=== PATIENT | female | born 1980 | race Caucasian/White ===

== ENCOUNTER 2023-04-03 14:53 | Emergency (ER) | payer OTHER, SELFPAY ==
[2023-04-03 14:56] VITALS: BP 115/71
--- NOTE | 2023-04-03 15:56 | ED.GENMED ---
History of Present Illness
<Deanna Michelle PA-C - Last Filed: 04/03/23 18:06>
General
Chief Complaint: Head Injury
Source: patient
Exam Limitations: none
Time Seen by Provider: 04/03/23 15:20
Nursing documentation reviewed up to this point in time: agreed with
Travel History
Have you had any contact with someone who has COVID-19?: No
Do you have any symptoms of coronavirus? Fever > 100 degrees, chills, cough, shortness of breath, sore throat, loss of taste or smell, muscle aches, or headache?: No
History of Present Illness
History of Present Illness:
Patient is a 42-year-old female with history of gastroparesis, hypothyroid, migraines presenting for evaluation following head injury earlier today. She states that she was walking into a parking garage in [place] around 12 PM when the arm came
down striking her in the forehead. She did not fall to the ground or lose consciousness. She has no amnesia surrounding event. Patient does endorse a headache and some nausea that has persisted. She denies any neck pain, visual changes,
confusion, back pain, chest pain, shortness of breath. Her mother is with patient Emergency Department states that she has been acting herself.
Patient has a history of gastroparesis and migraines. She takes 8 mg Zofran every 8 hours as a standing dose. Her nausea seems more persistent today after head injury.
Past History
<Deanna Michelle PA-C - Last Filed: 04/03/23 18:06>
Past History
ED Past Medical History: GERD, Hypothyroidism (Mai's thyroiditis), Psychiatric (Anxiety and panic disorder) and Other (Fibromyalgia, migraines, chronic facial pain, pelvic pain, orthostatic hypotension, anxiety, non-motile colon, chronic
fatigue)
ED Past Surgical History: Appendectomy and Other (Total colectomy 2015, oophorectomy 2015, exploratory lap 2014, endoscopy with Botox 2014, appendectomy 2006, colonoscopy 2013, endoscopy 2006, 2010, 2013)
Social History
Tobacco: Non-smoker
Alcohol: None
Phy Exam
<Deanna Michelle PA-C - Last Filed: 04/03/23 18:06>
Physical Exam
Physical Exam:
General: Well appearing and non-toxic
Vitals: Vital signs stable, afebrile
HEENT: Atraumatic, normocephalic; pupils equal round reactive to light bilaterally, extraocular muscle intact, no tenderness around orbits, no hematoma, protecting airway
Neck: appears supple, no C-spine tenderness, no midline spinal tenderness
CV: Regular rhythm, heart sounds normal, no evidence of cyanosis
Resp: No evidence of respiratory distress, lungs clear, no accessory muscle use
Abd: Non-distended
Extremities: No deformities, no evidence of cyanosis or edema; strength 5 out of 5 in upper and lower extremities
Neuro: alert and oriented to person place time, speech normal, no focal neurologic deficits, no focal motor deficits, cranial nerves II, sensation fully intact, normal [id number]
Psych: Normal affect
Skin: Intact, no rashes or ecchymoses
Course
<Deanna Michelle PA-C - Last Filed: 04/03/23 18:06>
Orders/Labs/Results
Orders:
Orders
04/03/23 15:57
Acetaminophen [Tylenol] 650 mg PO NOW STA
Vital Signs
Initial and Last Documented VS:
Initial Vital Signs
Temp Pulse Resp BP Pulse Ox
98.2 F 74 16 115/71 98
04/03/23 14:56 04/03/23 14:56 04/03/23 14:56 04/03/23 14:56 04/03/23 14:56
Last Documented Vital Signs
Temp Pulse Resp BP Pulse Ox
98.2 F 74 16 115/71 98
04/03/23 14:56 04/03/23 14:56 04/03/23 14:56 04/03/23 14:56 04/03/23 14:56
<Balaji Mooney DO - Last Filed: 04/03/23 16:04>
Orders/Labs/Results
Orders:
Orders
04/03/23 15:57
Acetaminophen [Tylenol] 650 mg PO NOW STA
Vital Signs
Initial and Last Documented VS:
Initial Vital Signs
Temp Pulse Resp BP Pulse Ox
98.2 F 74 16 115/71 98
04/03/23 14:56 04/03/23 14:56 04/03/23 14:56 04/03/23 14:56 04/03/23 14:56
Last Documented Vital Signs
Temp Pulse Resp BP Pulse Ox
98.2 F 74 16 115/71 98
04/03/23 14:56 04/03/23 14:56 04/03/23 14:56 04/03/23 14:56 04/03/23 14:56
<Deanna Michelle PA-C - Last Filed: 04/03/23 18:06>
MDM/Problems Addressed
Differential Diagnosis Includes:
concussion, contusion, etc
MDM/Problems Addressed:
Patient is a 42-year-old female presenting for evaluation of head injury that occurred earlier today around noon. She was struck with arm a parking garage she was walking through. She did not lose consciousness. She is endorsing mild headache and
persistent nausea. She denies any vomiting, confusion, or amnesia. She does take Zofran 8 mg 3 times daily for persistent nausea from gastroparesis. Patient has stable vital signs upon arrival. Physical exam as documented above. She has no
neurologic deficits. There is no evidence of hematoma, bruising to forehead. She has not vomited since arrival to emergency department.
Utilize [place] CT head rule�patient scored 0, head CT unnecessary
Given patient appearance, normal neuroexam, and [place] head CT rule�feel that head CT is not necessary. Suspect likely mild head injury/concussion. Lengthy discussion with patient regarding return precautions, supportive care, primary care
follow-up. Will give Tylenol for headache. Patient stable for discharge. Patient is comfortable this plan. All questions answered.
Chronic conditions affecting care:
Migraines, gastroparesis, anxiety
Acute Exacerbation and/or Progression of Chronic Illness:
Mild head injury
<Deanna Michelle PA-C - Last Filed: 04/03/23 18:06>
*Pulse Oximetry
Patient hypoxic: no
*Real Estate Sales Manager Interpretation
Rate: Real Estate Sales Manager- N/A
*Critical Care Note
Total Time (30-74mins, 75-104mins- exclusive of procedures): Not Applicable
ED Attending Note
<Deanna Michelle PA-C - Last Filed: 04/03/23 18:06>
-
Portions of this chart may have been created with voice recognition software.� Occasional wrong word or��sound alike� substitutions may have occurred due to the inherent limitations of voice recognition software.
<Balaji Mooney, - Last Filed: 04/03/23 16:04>
ED Attending Note
Patient seen and examined by attending physician: Yes
I performed the substantive portion of visit, reviewed & personally made and approve the management plan that is documented in note by myself or MORENO.: Yes
ED Attending Note:
Agree with Maribel's note.
No cephalohematoma. Neuro exam non-focal.
Symptomatic care
Discharge Plan
Departure
Patient Disposition: Home (Routine Discharge)
Date of Disposition: 04/03/23
Time of Disposition: 16:34
Patient with high blood pressure during this ER visit?: No
Condition: Good
Covid-19: Not Applicable
Discharge Problem:
Head injury
Instructions: Concussion, Adult (DC), Minor Head Injury (DC)
Prescriptions:
No Action
terazosin 5 MG capsule
10 mg PO HS
ondansetron HCl [Zofran] 8 MG tablet
8 mg PO TIDPRN PRN (Reason: nausea/vomiting)
clonazepam 1 MG tablet
2 mg PO BID
Patient Comments:
11/13/2019: last filled 09/11/19, 60 tabs for 30 days from [place]
rimabotulinumtoxinB [Myobloc] 10,000 UNIT/2 ML solution
10,000 unit IM Q3M
Patient Comments:
11/13/2019: pt states beginning of october
pantoprazole 40 MG tablet,delayed release (DR/EC)
40 mg PO BID
fluticasone propionate 1 SPRAY spray,suspension
2 spray intranasal DAILY
melatonin 1 MG tablet
2 mg PO HS
hydroxyzine pamoate 100 MG capsule
200 mg PO HS
quetiapine 100 MG tablet
100 mg PO HS
levothyroxine 125 MCG tablet
125 mcg PO DAILY
doxazosin 4 MG tablet
4 mg PO BID
albuterol sulfate 1 PUFF HFA aerosol inhaler
2 puff inhalation R Q4HPRN PRN (Reason: sob)
oxycodone-acetaminophen 5 MG/325 MG tablet
2 tab PO Q4HPRN PRN (Reason: SEVERE PAIN) Qty: 20 0RF
diclofenac potassium 50 MG tablet
50 mg PO BID Qty: 20 0RF
naproxen 500 mg tablet
500 mg PO BID Qty: 20 0RF
methocarbamol 500 mg tablet
500 - 1,000 mg PO HS Qty: 12 0RF
Referrals:
Raman Elizondo MD [Family Provider] - Follow up in 1 week
Stand Alone Forms: Return to Work
Activity Restrictions/Additional Instructions:
- Return to the emergency department with any severe headache, intractable vomiting, changes in vision, severe neck pain, confusion, changes in mental status, worsening in current symptoms, or any other concerns
-You can take tylenol as needed for headache. You should continue to take your zofran prescription as prescribed
-Apply ice to forhead to limit brusing/swelling
-Follow-up with primary care for further evaluation/treatment if symptoms persist
Interventions
Interventions:
*Risk Screen - Suicide Last Done: 04/03/23 17:08
*General Assessment Last Done: 04/03/23 17:08
*Neglect/Abuse Screening Last Done: 04/03/23 17:08
ED- Fall Risk Assessment Last Done: 04/03/23 17:08
*ED COVID-19 Vaccine History Last Done: 04/03/23 14:56
*Nursing Disposition Last Done: 04/03/23 17:08
ED- Neurological Assessment Last Done: 04/03/23 17:08
ED-Skin Assessment Last Done: 04/03/23 17:08
Discharge Date and Time
Discharge Date/Time: 04/03/23 17:08
[2023-04-03] MEDS: TYLENOL 650 MG PO (16:05)
== END 2023-04-03 17:08 | disposition home or self-care (01) ==
LOC: EMR 14:53
PROVIDERS: EMERGENCY PHYSICIAN Emergency Medicine; FAMILY PHYSICIAN Family Medicine
DX: S09.90XA Unspecified injury of head, initial encounter (principal); W22.8XXA Striking against or struck by other objects, initial encounter; K31.84 Gastroparesis; G43.909 Migraine, unspecified, not intractable, without status migrainosus; F41.9 Anxiety disorder, unspecified
CPT/HCPCS: 99282

== ENCOUNTER 2023-09-30 08:13 | Emergency (ER) | payer OTHER, SELFPAY ==
[2023-09-30 08:14] VITALS: BP 105/69
--- NOTE | 2023-09-30 09:37 | ED.GENMED ---
History of Present Illness
General
Chief Complaint: Flank Pain
Source: patient
Exam Limitations: none
Time Seen by Provider: 09/30/23 08:19
Nursing documentation reviewed up to this point in time: agreed with
History of Present Illness
History of Present Illness:
The patient is a pleasant 42-year-old female who comes in with complaints of intermittent right flank pain for several days. Patient reports that intensified last night and is associated with nausea. Patient denies vomiting and fever. She reports
she has had increased frequency of urination lately. She denies a history of kidney stones.
Past History
Past History
ED Past Medical History: GERD, Hypothyroidism (Mai's thyroiditis), Psychiatric (Anxiety and panic disorder) and Other (Fibromyalgia, migraines, chronic facial pain, pelvic pain, orthostatic hypotension, anxiety, non-motile colon, chronic
fatigue)
ED Past Surgical History: Appendectomy and Other (Total colectomy 2015, oophorectomy 2015, exploratory lap 2014, endoscopy with Botox 2014, appendectomy 2005, colonoscopy 2013, endoscopy 2006, 2010, 2013)
Social History
Tobacco: Non-smoker
Alcohol: None
Drug: None
Personal: Other
Living: with family
Employment: Other
Family History
Family History: Other
Review of Systems
Review of Systems
Allergies reviewed?: Yes
All Other Systems: ROS reviewed and negative except as documented in HPI and ROS
Constitutional: Reports no symptoms
EENT: Reports no symptoms
Respiratory: Reports no symptoms
Cardiac: Reports no symptoms
ABD/GI: Reports nausea
: Reports frequency and flank pain
Musculoskeletal: Reports no symptoms
Skin: Reports no symptoms
Neurological: Reports no symptoms
Endocrine: Reports no symptoms
Hematologic/Lymphatic: Reports no symptoms
Psychiatric: Reports no symptoms
Phy Exam
Physical Exam
Physical Exam:
Physical Exam
General: no apparent distress, not acutely ill
Neck: supple. no meningeal signs. normal psoterior pharynx
Heart: s1/s2 regular rate and rhythm, no murmur. equal radial pulses.
Lungs: no acute respiratory distress. clear bilaterally
Abdomen: normal bowel sounds. not tender. no CVAT
Neuro: alert and oriented. no focal neurological deficits
Skin: no rash
Psychiatric: well kept. interactive and cooperative
Extremities: no edema. no calf tenderness. negative homans. good distal pulses
Course
Orders/Labs/Results
Orders:
Orders
09/30/23 08:59
Ketorolac [Toradol] 30 mg IV NOW STA
Morphine Sulfate 4 mg IV NOW STA
09/30/23 09:00
Test Result ONCE
09/30/23 09:01
CT Abd/pel Without Iv Or Oral Urgent
Comment:
Reason For Exam: R flank pain
09/30/23 09:32
Complete Blood Count/With Diff Urgent
Urinalysis Reflex To Culture Urgent
Date Specimen was Collected: 09/30/23
Time Specimen was Collected: 09:03
09/30/23 09:45
Comprehensive Metabolic Panel Urgent
HCG, Serum Qualitative Screen Urgent
Abnormal Lab Results
09/30/23
09:32
RBC 3.99 L 10^6/uL
(4.20-5.40)
Hct 36.5 L %
(37.0-47.0)
MCH 31.6 H pg
(27.0-31.0)
09/30/23 09:32
09/30/23 09:45
Vital Signs
Initial and Last Documented VS:
Initial Vital Signs
Temp Pulse Resp BP Pulse Ox
98.1 F 91 20 105/69 97
09/30/23 08:14 09/30/23 08:14 09/30/23 08:14 09/30/23 08:14 09/30/23 08:14
Last Documented Vital Signs
Temp Pulse Resp BP Pulse Ox
98.1 F 91 20 99/60 94
09/30/23 08:14 09/30/23 08:14 09/30/23 08:14 09/30/23 10:05 09/30/23 10:15
MDM/Problems Addressed
Differential Diagnosis Includes:
Acute pyelonephritis, acute renal colic on right, small bowel obstruction
MDM/Problems Addressed:
Patient presents with acute right flank pain and nausea
Chronic conditions affecting care: Previous abdomnial surgery
Acute Exacerbation and/or Progression of Chronic Illness: Previous abdomnial surgery
*Radiology
Radiology exam reviewed: radiology read reviewed
*Pulse Oximetry
Patient hypoxic: no
*EKG
Interpreted by ED Provider?: NA
*Jewel Grinder Interpretation
Rate: normal
Interpretation: normal
Rhythm: sinus
*Critical Care Note
Total Time (30-74mins, 75-104mins- exclusive of procedures): Not Applicable
Data Reviewed
Review of Other/Old Records Reveals: Discharge Summary (Discharge summary reviewed from 10/2020 patient was admitted for intractable abdominal pain thought to be due to musculoskeletal)
Source: patient
Patient Management
Social determinants of health affecting care: Living situation and Strong social support
Escalation/DeEscalation of care consider admission/obs:
Patient continues to look well and comfortable, without any fever, elevated white blood cell count, or abnormal labs. Urine does not suggest pyelonephritis. Patient is able to eat crackers and drink willy raymon. She will be encouraged to follow-up
with her doctor. CT suggest no acute intra-abdominal or pelvic infection.
ED Attending Note
-
Portions of this chart may have been created with voice recognition software.� Occasional wrong word or��sound alike� substitutions may have occurred due to the inherent limitations of voice recognition software.
Discharge Plan
Departure
Patient Disposition: Home (Routine Discharge)
Date of Disposition: 09/30/23
Time of Disposition: :22
Patient with high blood pressure during this ER visit?: No
Condition: Good
Covid-19: Not Applicable
Discharge Problem:
Acute right flank pain
Instructions: Flank Pain (DC)
Prescriptions:
No Action
terazosin 5 MG capsule
10 mg PO HS
ondansetron HCl [Zofran] 8 MG tablet
8 mg PO TIDPRN PRN (Reason: nausea/vomiting)
clonazepam 1 MG tablet
2 mg PO BID
Patient Comments:
11/13/2019: last filled 09/11/19, 60 tabs for 30 days from [place]
rimabotulinumtoxinB [Myobloc] 10,000 UNIT/2 ML solution
10,000 unit IM Q3M
Patient Comments:
11/13/2019: pt states beginning of october
pantoprazole 40 MG tablet,delayed release (DR/EC)
40 mg PO BID
fluticasone propionate 1 SPRAY spray,suspension
2 spray intranasal DAILY
melatonin 1 MG tablet
2 mg PO HS
hydroxyzine pamoate 100 MG capsule
200 mg PO HS
quetiapine 100 MG tablet
100 mg PO HS
levothyroxine 125 MCG tablet
125 mcg PO DAILY
doxazosin 4 MG tablet
4 mg PO BID
albuterol sulfate 1 PUFF HFA aerosol inhaler
2 puff inhalation R Q4HPRN PRN (Reason: sob)
oxycodone-acetaminophen 5 MG/325 MG tablet
2 tab PO Q4HPRN PRN (Reason: SEVERE PAIN) Qty: 20 0RF
diclofenac potassium 50 MG tablet
50 mg PO BID Qty: 20 0RF
naproxen 500 mg tablet
500 mg PO BID Qty: 20 0RF
methocarbamol 500 mg tablet
500 - 1,000 mg PO HS Qty: 12 0RF
Referrals:
Raman Elizondo MD [Family Provider] -
Activity Restrictions/Additional Instructions:
Return for fever or vomiting.
Interventions
Interventions:
*Risk Screen - Suicide Last Done: 09/30/23 08:14
*General Assessment Last Done: 09/30/23 08:14
*Neglect/Abuse Screening Last Done: 09/30/23 08:14
ED- Fall Risk Assessment Last Done: 09/30/23 09:00
IU-Xgzvoa-Xpzodqsrdv Assessment Last Done: 09/30/23 09:00
ED-Female Genitourinary Assessment Last Done: 09/30/23 09:00
Discharge Date and Time
Print Language: SPANISH
[2023-09-30] MEDS: TORADOL 30 MG IV (09:50)
[2023-09-30] MEDS: MORPHINE SULFATE 4 MG IV (09:51)
[2023-09-30 10:03] LABS: Urine Albumin Negative (Neg - Trace); Urine Bilirubin Negative (Negative); Urine Character Clear (Clear); Urine Color Yellow; Urine Glucose Negative (Negative); Urine Ketone Negative (Negative); Urine Leukocyte Negative (Negative); Urine Nitrite Negative (Negative); Urine Occult Blood Negative (Negative); Urine Urobilinogen Negative (Neg - 1+); Urine pH 6.5 (5.0-9.0)
[2023-09-30 10:05] VITALS: BP 99/60
[2023-09-30 10:25] LABS: % Basophils 0.9 % (0-2); % Eosinophils 1.1 % (0-6); % Immature Granulocytes 0.2 % (0-0.5); % Lymphocytes 38.2 % (20.5-51.1); % Monocytes 6.7 % (1.7-9.3); % Neutrophils 52.9 % (42.2-75.2); Absolute Basophils 0.1 10^3/uL (0-0.2); Absolute Eosinophils 0.1 10^3/uL (0-0.7); Absolute Lymphocytes 2.1 10^3/uL (1.2-3.4); Absolute Monocytes 0.4 10^3/uL (0.1-0.6); Absolute Neutrophils 2.9 10^3/uL (1.4-6.5); Hematocrit 36.5 % (37.0-47.0); Hemoglobin 12.6 g/dL (12.0-16.0); Mean Corp Hgb Conc. 34.5 g/dL (33.0-37.0); Mean Corpuscular Hgb 31.6 pg (27.0-31.0); Mean Corpuscular Volume 91.5 fL (81.0-99.0); Mean Platelet Volume 9.5 fL (7.4-10.4); Nucleated Red Blood Cells % 0 %; Platelet Count 280 10^3/uL (130-400); Red Blood Cell Count 3.99 10^6/uL (4.20-5.40); Red Cell Dist. Width 11.9 % (11.5-14.5); White Blood Cell Count 5.4 10^3/uL (4.8-10.8)
[2023-09-30 10:38] LABS: HCG, Serum Qualitative Screen Negative
[2023-09-30 10:40] LABS: ALT (SGPT) 16 U/L (0-35); AST (SGOT) 24 U/L (14-36); Albumin 4.5 g/dl (3.5-5.0); Alkaline Phosphatase 60 U/L (38-126); Blood Urea Nitrogen 7 mg/dl (7-17); Calcium 9.8 mg/dl (8.4-10.2); Carbon Dioxide 26 mmol/L (22-30); Chloride 104 mmol/L (98-107); Glucose 83 mg/dl (70-99); Potassium 4.2 mmol/L (3.5-5.1); Sodium 135 mmol/L (135-145); Total Bilirubin 0.4 mg/dl (0.2-1.3); eGFR > 60.00
== END 2023-09-30 11:15 | disposition home or self-care (01) ==
LOC: EMR 08:13
PROVIDERS: EMERGENCY PHYSICIAN Emergency Medicine; FAMILY PHYSICIAN Family Medicine
DX: R10.9 Unspecified abdominal pain (principal); R11.0 Nausea; R35.0 Frequency of micturition; K21.9 Gastro-esophageal reflux disease without esophagitis; F41.9 Anxiety disorder, unspecified; M79.7 Fibromyalgia; E06.3 Autoimmune thyroiditis; F41.0 Panic disorder [episodic paroxysmal anxiety]; K58.9 Irritable bowel syndrome, unspecified; G43.909 Migraine, unspecified, not intractable, without status migrainosus; Z88.1 Allergy status to other antibiotic agents; Z88.2 Allergy status to sulfonamides; Z91.048 Other nonmedicinal substance allergy status
CPT/HCPCS: 99284; 96374; 96375; 74176; 80053; 81003; 84703; 85025

== ENCOUNTER 2023-11-26 10:39 | Emergency (ER) | payer OTHER, SELFPAY ==
[2023-11-26 10:41] VITALS: BP 109/68
--- NOTE | 2023-11-26 11:47 | ED.GENMED ---
History of Present Illness
General
Chief Complaint: Musculo-Skeletal Complaint
Time Seen by Provider: 11/26/23 11:05
History of Present Illness
History of Present Illness:
43-year-old female with history of chronic back pain presenting to the emergency department for lower back pain. Patient reports that she woke up this morning with pain in her lower back with shooting pain down both of her legs. Denies any
inciting injury or trauma, however notes that she saw her chiropractor 3 days ago for her other back issues. Denies numbness or tingling to her extremities. Denies issues with ambulation. She tried a Percocet at home for pain, without significant
relief. Denies fever. Denies chest pain, difficulty breathing, abdominal pain. Notes known history of disc herniations in the past. Denies additional acute medical complaints
Past History
Past History
ED Past Medical History: GERD, Hypothyroidism (Mai's thyroiditis), Psychiatric (Anxiety and panic disorder) and Other (Fibromyalgia, migraines, chronic facial pain, pelvic pain, orthostatic hypotension, anxiety, non-motile colon, chronic
fatigue)
ED Past Surgical History: Appendectomy and Other (Total colectomy 2015, oophorectomy 2015, exploratory lap 2014, endoscopy with Botox 2014, appendectomy 2005, colonoscopy 2013, endoscopy 2006, 2010, 2013)
Social History
Tobacco: Non-smoker
Alcohol: None
Drug: None
Personal: Other
Living: with family
Employment: Other
Family History
Family History: Other
Phy Exam
Physical Exam
Physical Exam:
General: Well-appearing, no clinical signs of dehydration, nontoxic and in no acute distress
HEENT: protecting airway
Neck: appears supple
CV: Normal heart rate, regular rhythm
Resp: No accessory muscle use, no increased work of breathing, lungs clear to auscultation bilaterally
Abd: No distention
Extremities: No deformities, no swelling, no erythema, pulses and sensation intact. Tenderness to the lower lumbar spine, particularly the paraspinal musculature. No step-offs.
Neuro: alert, no focal neurologic deficit
: deferred
Rectal: deferred
Psych: Normal affect
Skin: Intact
Course
Orders/Labs/Results
Orders:
Orders
11/26/23 11:24
Ketorolac [Toradol] 30 mg IM NOW STA
Lidocaine [Lidocaine 4% Patch] 1 patch TOPICAL NOW STA
Apply Lidocaine patch(s) to:: lumbar
Vital Signs
Initial and Last Documented VS:
Initial Vital Signs
Temp Pulse Resp BP Pulse Ox
98.5 F 94 16 109/68 97
11/26/23 10:41 11/26/23 10:41 11/26/23 10:41 11/26/23 10:41 11/26/23 10:41
Last Documented Vital Signs
Temp Pulse Resp BP Pulse Ox
98.5 F 94 16 109/68 97
11/26/23 10:41 11/26/23 10:41 11/26/23 10:41 11/26/23 10:41 11/26/23 10:41
MDM/Problems Addressed
MDM/Problems Addressed:
43-year-old female with history of chronic back pain presenting to the emergency department for lower back pain with radiation of pain down her legs bilaterally. Vital signs on arrival are normal.
Symptoms appear most consistent with musculoskeletal etiology, suspected lumbar radiculopathy versus sciatica. Do not suspect any concerning etiology to patient's presenting symptoms. Do not suspect any spinal fracture in the absence of any direct
trauma. No fever, systemic symptoms, without concern for spinal abscess or infection. No red flag such as bowel or bladder incontinence, focal weakness, or any sensory deficits on exam, without present concern for spinal compression. Patient
notes that she saw her chiropractor on and he had been working on her back. Suspect that she may have exacerbated a prior injury at this time. Will treat with Toradol and lidocaine patch. Patient is driving home, so will not be providing
any present sedating medications. Otherwise do not feel patient requires any advanced workup or emergent imaging. Feel stable for discharge with close interval follow-up with her doctor. Will provide steroid pack, muscle relaxer. Return
precautions discussed and patient verbalized understanding
*Critical Care Note
Total Time (30-74mins, 75-104mins- exclusive of procedures): Not Applicable
ED Attending Note
-
Portions of this chart may have been created with voice recognition software.� Occasional wrong word or��sound alike� substitutions may have occurred due to the inherent limitations of voice recognition software.
Discharge Plan
Departure
Prescriptions:
No Action
terazosin 5 MG capsule
10 mg PO HS
ondansetron HCl [Zofran] 8 MG tablet
8 mg PO TIDPRN PRN (Reason: nausea/vomiting)
clonazepam 1 MG tablet
2 mg PO BID
Patient Comments:
11/13/2019: last filled 09/11/19, 60 tabs for 30 days from [place]
rimabotulinumtoxinB [Myobloc] 10,000 UNIT/2 ML solution
10,000 unit IM Q3M
Patient Comments:
11/13/2019: pt states beginning of october
pantoprazole 40 MG tablet,delayed release (DR/EC)
40 mg PO BID
fluticasone propionate 1 SPRAY spray,suspension
2 spray intranasal DAILY
melatonin 1 MG tablet
2 mg PO HS
hydroxyzine pamoate 100 MG capsule
200 mg PO HS
quetiapine 100 MG tablet
100 mg PO HS
levothyroxine 125 MCG tablet
125 mcg PO DAILY
doxazosin 4 MG tablet
4 mg PO BID
albuterol sulfate 1 PUFF HFA aerosol inhaler
2 puff inhalation R Q4HPRN PRN (Reason: sob)
oxycodone-acetaminophen 5 MG/325 MG tablet
2 tab PO Q4HPRN PRN (Reason: SEVERE PAIN) Qty: 20 0RF
diclofenac potassium 50 MG tablet
50 mg PO BID Qty: 20 0RF
naproxen 500 mg tablet
500 mg PO BID Qty: 20 0RF
methocarbamol 500 mg tablet
500 - 1,000 mg PO HS Qty: 12 0RF
Referrals:
Raman Elizondo MD [Family Provider] -
Interventions
Interventions:
*Risk Screen - Suicide Last Done: 11/26/23 10:43
*General Assessment Last Done: 11/26/23 11:51
*Neglect/Abuse Screening Last Done: 11/26/23 10:43
ED- Fall Risk Assessment Last Done: 11/26/23 11:51
ED-Musculoskeletal Assessment Last Done: 11/26/23 11:51
Discharge Date and Time
Print Language: LATVIAN
[2023-11-26] MEDS: TORADOL 30 MG IM (11:53)
[2023-11-26] MEDS: LIDOCAINE 4% PATCH 1 PATCH TOPICAL (11:53)
[2023-11-26 12:50] VITALS: BP 103/60
[2023-11-26 13:09] VITALS: BP 103/60
== END 2023-11-26 13:10 | disposition home or self-care (01) ==
LOC: EMR 10:39
PROVIDERS: EMERGENCY PHYSICIAN Student in an Organized Health Care Education/Training Program; FAMILY PHYSICIAN Family Medicine
DX: M54.16 Radiculopathy, lumbar region (principal); K21.9 Gastro-esophageal reflux disease without esophagitis; E06.3 Autoimmune thyroiditis; M79.7 Fibromyalgia; F41.9 Anxiety disorder, unspecified; G89.29 Other chronic pain; Z90.49 Acquired absence of other specified parts of digestive tract; Z90.721 Acquired absence of ovaries, unilateral; Z92.3 Personal history of irradiation
CPT/HCPCS: 99282; 96372